=== PATIENT | male | born 1975 | race Caucasian/White ===

== ENCOUNTER 2016-11-04 10:46 | Emergency (ER) | payer SELFPAY ==
[2016-11-04 10:48] VITALS: BMI 28.0
[2016-11-04 11:19] VITALS: BP 144/67; PULSE 93; TEMP 98.4
--- NOTE | 2016-11-04 11:43 | EDPRACDOC ---
- General Information Chief Complaint: Back Pain Stated Complaint: back pain Time Seen by Provider: 11/04/16 11:38 Mode Of Arrival: Car Home Medications: Home Medications Cyclobenzaprine HCl [Flexeril] 10 mg PO TID #21 tab 11/04/16 Hydrocodone Bit/Acetaminophen [Hydrocodon-Acetaminophen 5-325] 1 tab PO Q6 PRN # 20 tab 11/04/16 Prednisone [Deltasone, Orasone] 40 mg PO DAILY 5 Days 11/04/16 Allergies/Adverse Reactions: Allergies Allergy/AdvReac Type Severity Reaction Status Date / Time No Known Allergies Allergy Verified 11/04/16 10:47 - History of Present Illness Onset: one month HPI: PT COMPLAINS OF WORSENING PAIN IN LEFT SIDE OF HIS BACK X 1 MTH SINCE SPLITTING WOOD, STATES PAIN IS THROBBING, SEVERE, WORSE WITH MOVEMENT, STATES HAS "BURNING " PAIN DOWN BACK OF LEFT LEG, NO BOWEL/BLADDER DYSFUNCTION, USING ADVIL AND HEATING PAD WITHOUT RELIEF. Pain Location: Reports: Left, Thoracic, Lumbar Pain Radiates To: Reports: Thigh Pain Caused By: Reports: Lifting, Twisting Circumstances: Reports: Other Relevant History: Reports: None Pain Severity: Reports: Severe Pain Quality: Reports: Aching, Burning Worsened By: Reports: Movement, Twisting, Walking Associated Signs and Symptoms: Denies: Abdominal Pain, Dysuria, Hematuria, Nausea, Vomiting ED Past Medical History - History Reviewed Yes Nurses notes reviewed and agree except as marked No Past Medical History: Yes Patient has no past medical history - Patient Medical History Surgical History: Reports: Cholecystectomy - Social Medical History Smoking Status: Heavy tobacco smoker (5 or more cigarettes/day or daily pipe/ cigar) ETOH: None Substance Abuse: None EDM Review of Systems - Review of Systems Constitutional: negative: Chills, Fever Genitourinary: negative: Dysuria, Frequency Neurological: negative: Dizziness, Headache, Numbness, Weakness Musculoskeletal: Back - Physical Exam Constitutional: Alert (Awake), No apparent distress Oriented to: Time, Person, Place Last recorded Vital Signs: Last Vital Signs Temp 98.4 F 11/04/16 11:16 Pulse 93 11/04/16 11:16 Resp 18 11/04/16 11:16 BP 144/67 11/04/16 11:16 Pulse Ox 98 11/04/16 11:16 Oxygen Pulse Oxygen Saturation 98 O2 Device Room Air Oxygen Flow Rate Fraction of Inspired Oxygen ( FIO2) - HEENT Head: Normal ( normocephalic) - Integumentary Skin: Normal, Warm, Dry Lymphatics: Normal (no adenopathy) - Neurologic Memory Impaired: Normal Motor Function: Normal (Normal tone, Pulses 2+ No cyanosis or edema, FROM) Cranial Nerve: Normal (CN II-X11 intact sensation, strength 5/5) Cerebellar: Normal Mood Description: Normal Perception: Normal ED Back Exam - Neurologic Motor Deficit: None - Musculoskeletal Cervical: Normal Thoracic: Normal Lumbar: Tender Midline: Normal Paraspinous: Tender Straight Leg Raise: Negative Pelvis: Normal - Differential Diagnosis DJD, HNP, Musculoskeletal pain, Strain Decision Time to Discharge: 11:43 - Departure Disposition: Home Condition: Stable Final Diagnosis: Acute low back pain with sciatica Qualifiers: Back pain laterality: left Sciatica laterality: sciatica of left side Qualified Code(s): M54.42 - Lumbago with sciatica, left side Instructions: Sciatica (ED) Education/Counseling Given To: Patient Education/Counseling Given Regarding: Diagnosis, Treatment, Prognosis, Follow Up Referrals: Rafa Lockett MD [Staff Physician] - One Week Prescriptions: New Hydrocodone Bit/Acetaminophen [Hydrocodon-Acetaminophen 5-325] 1 tab PO Q6 PRN #20 tab PRN Reason: Pain Prednisone [Deltasone, Orasone] 40 mg PO DAILY 5 Days Continue Cyclobenzaprine HCl [Flexeril] 10 mg PO TID #21 tab Discontinued Ketorolac Tromethamine [Toradol] 10 mg PO Q6H PRN #12 tab PRN Reason: Pain Additional Instructions: Back Pain: apply warm compresses to affected area 20 mins at a time 4 - 5 times daily as needed for pain
== END 2016-11-04 12:06 | disposition home or self-care (01) ==
LOC: ED 10:46 → EDMC 12:06
DX: M54.42 Lumbago with sciatica, left side (principal)
CPT/HCPCS: 99282